=== PATIENT | female | born 1965 | race Caucasian/White ===

== ENCOUNTER 2020-06-12 06:39 | Outpatient (CLI) | payer OTHER ==
[2020-06-12 12:20] LABS: #Basophils 0.1 10x3/uL (0.0-0.2); #Eosinphils 0.1 10x3/uL (0.0-0.5); #Monocytes 0.5 10x3/uL (0.0-1.1); #Neutrophils 5.5 10x3/uL (1.5-8.4); %Basophils 0.6 % (0.0-2.0); %Eosinophils 0.6 % (0.0-6.0); %Lymphocytes 22.3 % (18.0-47.0); %Monocytes 6.7 % (0.0-10.0); %Neutrophils 69.5 % (40.0-75.0); Hemoglobin 13.8 g/dL (12.0-16.0); Mean Corpuscular HGB CONC 33.6 G/DL (32.0-36.0); Mean Corpuscular Hemoglobin 30.7 PG (27.0-33.0); Mean Corpuscular Volume 91.3 fl (80.0-100.0); Mean Platelet Volume 9.6 fl (7.4-10.4); Platelet Count 242 10x3/uL (130-400); RBC Distribution Width 12.8 % (11.5-14.5); White Blood Cell (WBC) Count 7.9 10x3/uL (4.5-11.0)
[2020-06-12 12:32] LABS: Anion Gap 13 mmol/L (10-20); BUN (Urea Nitrogen) 16 mg/dL (9.8-20.1); Calc. Creatinine Clearance 0 mL/min (70-130); Calcium 9.1 mg/dL (7.8-10.44); Carbon Dioxide 27 mmol/L (22-29); Chloride 102 mmol/L (98-107); Glucose 97 mg/dL (70-105); Potassium 4.2 mmol/L (3.5-5.1); Sodium 138 mmol/L (136-145)
[2020-06-12 19:02] LABS: SARS-CoV-2 MS2 Positive; SARS-CoV-2 N Gene Negative; SARS-CoV-2 S Gene Negative; SARS-CoV-2 by NAA Not Detected (NotDetected); SARS-CoV-2 orf1ab Negative
== END 2020-06-12 06:40 | disposition home or self-care (01) ==
LOC: LABBT 06:39
PROVIDERS: ATTEND Specialist
DX: Z01.812 Encounter for preprocedural laboratory examination (principal); N63.20 Unspecified lump in the left breast, unspecified quadrant; Z20.828 Contact with and (suspected) exposure to other viral communicable diseases
CPT/HCPCS: 80048; 85025; 87635; U0003

== ENCOUNTER 2020-06-17 06:54 | Day surgery (SDC) | payer OTHER ==
[2020-06-16 15:26] VITALS: BMI 39.1
[2020-06-17] MEDS ORDERED: Midazolam HCl 2 mg/2 ml Vial ONE (07:08)
[2020-06-17] MEDS ORDERED: Fentanyl 100 MCG/2 ML VIAL ONE (07:08)
[2020-06-17] MEDS ORDERED: Bupivacaine 0.25% HCL 30 ML VIAL ONE (07:26)
[2020-06-17] MEDS ORDERED: Isosulfan Blue 50 MG/5 ML VIAL ONE (07:26)
[2020-06-17] MEDS ORDERED: Lidocaine 2% PF 5 ML VIAL ONE (07:26)
[2020-06-17] MEDS ORDERED: EPINEPHrine 1 MG/ML AMP ONE (07:26)
[2020-06-17] MEDS ORDERED: Acetaminophen 500 MG TAB ONE (08:23)
[2020-06-17] MEDS ORDERED: Ketorolac Tromethamine 30 MG/ML VIAL ONE (08:23)
[2020-06-17] MEDS ORDERED: Lidocaine 1% w/Epinephrine 1:100K 20 ML VIAL ONE (09:21)
[2020-06-17] MEDS ORDERED: HYDROcodone/Acetaminophen 5/325 mg Tablet ONE (11:29)
[2020-06-17] MEDS ORDERED: Dexamethasone 20 MG/5 ML VIAL ONE (11:34)
[2020-06-17] MEDS ORDERED: PROPOFOL 200 MG/20 ML VIAL ONE (11:34)
[2020-06-17] MEDS ORDERED: Lidocaine 1% PF 5 ML VIAL ONE (11:34)
[2020-06-17] MEDS ORDERED: Ondansetron PF 4 MG/2 ML Vial ONE (11:34)
--- NOTE | 2020-06-17 12:26 | MMO ---
MAMMOGRAM SURGICAL SPECIMEN: HISTORY: Left breast nodule. FINDINGS: The surgical specimen demonstrates the localization wire with a large piece of soft tissue. No defin ite nodular density is identified. Discussed over the telephone with Dr. Jamar Stewart in the operating room at 10:32 a.m. CODE ELIUD POS: DELTA
--- NOTE | 2020-06-17 14:58 | OP ---
DATE OF PROCEDURE: 06/17/2020 PREOPERATIVE DIAGNOSIS: Mammographic left breast lesion. POSTOPERATIVE DIAGNOSIS: Mammographic left breast lesion. PROCEDURE PERFORMED: Mammographic needle localized left breast excisional biopsy. SENIOR QUALITY ASSURANCE ENGINEER: Jenn Schneider, medical student. ANESTHESIA: General with laryngeal mask airway. INDICATIONS: The patient is a 54-year-old female, who presents with a recent mammogram revealing a concerning lesion on the lateral left breast. This was not seen on ultrasound. She is brought in for mammographic needle localized excisional biopsy. DESCRIPTION OF OPERATION: Informed consent was obtained. The patient was taken to the operating room, where general anesthesia obtained, patient in supine position. Prior to surgery, she had mammographic needle localization performed. The needle was advanced in a superior to inferior fashion along the lateral aspect of the left breast. The needle was 9 cm from the tip of the needle at the point that it was advanced. Review of the x-ray preoperatively revealed that the lesion was about 2.5 cm from the tip of the needle and along the anterior surface of the needle. The left breast and needle were prepped with ChloraPrep and draped in sterile fashion. A counter incision was created overlying the course of the needle about 4 to 5 cm from the needle entry site. Dissection was carried through skin and subcutaneous tissue. Dissection was carried deeply within the breast. At that point, I dissected superiorly to identify the localizing needle. Identified at the point that it was about 4 to 5 cm from the tip of the needle. The needle was removed and the wire within the needle was then replaced to the counter incision. The tissue into which the wire entered was grasped with Allis clamp, and careful dissection was carried out around the wire, attempting to get a wide core of tissue, focusing on the anterior aspect of the wire. The dissection was carried out primarily using electrocautery and the specimen was removed intact with the wire still within it. Localizing sutures were placed and the specimen was submitted for mammographic evaluation. There was difficult to discern whether the lesion of concern was removed or not. It was then submitted to pathology. Meticulous hemostasis was obtained. The wound was irrigated. It was closed in layers with 3-0 and 4-0 Monocryl. Additional local anesthetic was infiltrated into the wound during closure. Dermabond was placed externally. There were no complications. Blood loss was negligible. The patient tolerated the procedure well and was taken to recovery room in stable condition. Job ID: [id number]
--- NOTE | 2020-06-17 15:52 | MMO ---
Exam: Left breast needle localization with mammographic guidance HISTORY: Left breast mass. COMPARISON: 02/27/2020. FINDINGS: Successful left breast needle localization with ultrasound guidance. 10 cm [place] needle and wire are adjacent to the lesion of concern. No immediate or postprocedure complications. TECHNIQUE: Consent obtained to perform a left breast needle localization. Under the CC projection, th e lesion was identified. Skin was prepped and draped in a sterile fashion. 1% lidocaine, buffered with sodium bicarbonate was used for local anesthesia. Under mammographic guidance, a 10 cm [place] nee dle and wire were advanced into the lesion via a CC approach. Needle position was confirmed in the lateral projection. Wire was deployed. Patient tolerated the procedure well. No immediate or postproc edure complications. IMPRESSION: Successful left breast needle localization with mammographic guidance. Transcribed Date/Time: 06/17/2020 4:05 PM
== END 2020-06-17 13:30 | disposition home or self-care (01) ==
LOC: SDC 06:54
PROVIDERS: ATTEND Specialist
PROC: 0HBU0ZZ Excision of Left Breast, Open Approach (ICD-10-PCS; principal; 2020-06-17)
DX: N60.22 Fibroadenosis of left breast (principal); M06.9 Rheumatoid arthritis, unspecified; Z79.899 Other long term (current) drug therapy
CPT/HCPCS: 19281; 76098; 88307; J0171; J0690; J1100; J1885; J2001; J2250; J2405; J2704; J3010; Q9968; S0020

== ENCOUNTER 2020-09-08 17:05 | Emergency (ER) | payer OTHER ==
--- NOTE | 2020-09-08 17:35 | RAD ---
XR Knee Lt 4 View STANDARD HISTORY: Left knee pain. Elevated WBCs. Fluid drained from knee. FINDINGS: No fracture or dislocation is identified. Mild degenerative changes are present. No bony destruction or periosteal reaction is identified.
[2020-09-08 17:53] LABS: #Eosinphils 0.2 thou/uL (0.0-0.7); #Lymphocytes 1.6 thou/uL (1.20-3.40); #Monocytes 0.4 thou/uL (0.11-0.59); #Neutrophils 4.7 thou/uL (1.40-6.50); %Basophils 0.1 % (0.0-1.0); %Lymphocytes 22.4 % (21.0-51.0); %Monocytes 6.2 % (0.0-10.0); %Neutrophils 68.3 % (42.0-75.0); Hemoglobin 13.7 g/dL (12.0-16.0); Mean Corpuscular HGB CONC 33.3 g/dL (32.0-36.0); Mean Corpuscular Hemoglobin 30.4 pg (27.0-31.0); Mean Corpuscular Volume 91.4 fL (78.0-98.0); Mean Platelet Volume 6.6 fL (7.4-10.4); Platelet Count 268 thou/uL (130-400); RBC Distribution Width 12.9 % (11.5-14.5); White Blood Cell (WBC) Count 6.9 thou/uL (4.8-10.8)
[2020-09-08 18:16] LABS: ALT (SGPT) 19 U/L (8-55); AST (SGOT) 15 U/L (5-34); Albumin 3.8 g/dL (3.5-5.0); Alkaline Phosphatase 74 U/L (40-110); Anion Gap 13 mmol/L (10-20); BUN (Urea Nitrogen) 14 mg/dL (9.8-20.1); Bilirubin, Total 0.6 mg/dL (0.2-1.2); Calc. Creatinine Clearance 0 mL/min (70-130); Carbon Dioxide 27 mmol/L (22-29); Chloride 101 mmol/L (98-107); Globulin 4.3 g/dL (2.4-3.5); Glucose 145 mg/dL (70-105); Potassium 3.7 mmol/L (3.5-5.1); Protein, Total 8.1 g/dL (6.0-8.3); Sodium 137 mmol/L (136-145)
== END 2020-09-08 21:30 | disposition home or self-care (01) ==
LOC: ERS 17:05
DX: M25.562 Pain in left knee (principal); M06.9 Rheumatoid arthritis, unspecified; Z79.899 Other long term (current) drug therapy
CPT/HCPCS: 36415; 80053; 83605; 85025

== ENCOUNTER 2020-09-18 11:52 | Emergency (ER) | payer OTHER ==
[2020-09-18 12:25] LABS: #Eosinphils 0.1 thou/uL (0.0-0.7); #Lymphocytes 1.4 thou/uL (1.20-3.40); #Monocytes 0.5 thou/uL (0.11-0.59); #Neutrophils 5.1 thou/uL (1.40-6.50); %Basophils 0.1 % (0.0-1.0); %Eosinophils 0.8 % (0.0-10.0); %Lymphocytes 19.2 % (21.0-51.0); %Monocytes 6.7 % (0.0-10.0); %Neutrophils 73.2 % (42.0-75.0); Hemoglobin 12.2 g/dL (12.0-16.0); Mean Corpuscular Hemoglobin 30.9 pg (27.0-31.0); Mean Corpuscular Volume 90.8 fL (78.0-98.0); Platelet Count 379 thou/uL (130-400); RBC Distribution Width 12.5 % (11.5-14.5); Red Blood Cell (RBC) Count 3.95 mill/uL (4.20-5.40)
[2020-09-18 12:51] LABS: ALT (SGPT) 10 U/L (8-55); AST (SGOT) 10 U/L (5-34); Albumin 3.6 g/dL (3.5-5.0); Alkaline Phosphatase 68 U/L (40-110); Anion Gap 15 mmol/L (10-20); BUN (Urea Nitrogen) 16 mg/dL (9.8-20.1); Bilirubin, Total 0.7 mg/dL (0.2-1.2); Calc. Creatinine Clearance 0 mL/min (70-130); Calcium 8.5 mg/dL (7.8-10.44); Carbon Dioxide 21 mmol/L (22-29); Chloride 105 mmol/L (98-107); Globulin 3.9 g/dL (2.4-3.5); Glucose 206 mg/dL (70-105); Potassium 4.1 mmol/L (3.5-5.1); Protein, Total 7.5 g/dL (6.0-8.3); Sodium 137 mmol/L (136-145)
== END 2020-09-18 14:19 | disposition home or self-care (01) ==
LOC: ERS 11:52
DX: M25.562 Pain in left knee (principal); R60.0 Localized edema; M06.9 Rheumatoid arthritis, unspecified; Z79.899 Other long term (current) drug therapy; M25.462 Effusion, left knee
CPT/HCPCS: 36415; 80053; 85025; 85060; 86140; 87070; 87077; 87102; 87116; 87186; 87205; 87206; 89051; 89060

== ENCOUNTER 2020-09-22 10:48 | Inpatient (IN) | payer OTHER ==
[~2020-09-22 10:48] MED LIST: Heparin 1,000 UNITS/ML VIAL ONE
[2020-09-22] MEDS ORDERED: VANCOMYCIN 2 GRAM/400 ML BAG 2 GM in Premix Bag 1 BAG IVPB SCH (13:15)
[2020-09-22] MEDS ORDERED: Ondansetron PF 4 MG/2 ML Vial IVP PRN (14:21)
[2020-09-22] MEDS ORDERED: Ondansetron ODT 4 MG TAB PO PRN (14:21)
[2020-09-22] MEDS ORDERED: Acetaminophen 650 MG Suppository PR PRN (14:21)
[2020-09-22] MEDS ORDERED: CEFAZOLIN 2 GM in Premix Bag 1 BAG IVPB SCH (15:45)
[2020-09-22] MEDS: Heparin 5,000 UNITS/ML VIAL SC SCH ×2 (17:05→20:14)
[2020-09-22 17:56] VITALS: BMI 39.4
[2020-09-22] MEDS: Acetaminophen 325 MG TAB PO PRN (20:13)
[2020-09-22] MEDS ORDERED: Cefepime 2 GM in Sodium Chloride 0.9% 100 ML IVPB SCH (21:00)
[2020-09-23] MEDS: Vancomycin 1.5 GRAM/300 ML BAG 1.5 GM in Premix Bag 1 BAG IVPB SCH ×2 (04:45→15:09)
[2020-09-23] MEDS: Heparin 5,000 UNITS/ML VIAL SC SCH ×3 (08:28→19:58)
[2020-09-23] MEDS ORDERED: Fentanyl 100 MCG/2 ML VIAL ONE ×3 (10:41→13:26)
[2020-09-23] MEDS ORDERED: Neomycin-Polymyxin 1 ML AMP ONE ×2 (11:09)
[2020-09-23] MEDS ORDERED: Ketorolac Tromethamine 30 MG/ML VIAL ONE (11:13)
[2020-09-23] MEDS ORDERED: PROPOFOL 200 MG/20 ML VIAL ONE (11:13)
[2020-09-23] MEDS ORDERED: Ondansetron PF 4 MG/2 ML Vial ONE (11:13)
[2020-09-23] MEDS ORDERED: Lidocaine 1% PF 5 ML VIAL ONE (11:13)
[2020-09-23] MEDS ORDERED: Dexamethasone 20 MG/5 ML VIAL ONE (11:13)
[2020-09-23] MEDS ORDERED: Promethazine HCl 25 MG/ML VIAL IM PRN (11:22)
[2020-09-23] MEDS ORDERED: Ondansetron HCl/PF 4 MG/2 ML Vial IVP PRN (11:22)
[2020-09-23] MEDS ORDERED: Promethazine HCl 25 MG/ML VIAL SLOW IVP PRN (11:22)
[2020-09-23] MEDS: Acetaminophen 325 MG TAB PO PRN (17:22)
[2020-09-24] MEDS: Vancomycin 1.5 GRAM/300 ML BAG 1.5 GM in Premix Bag 1 BAG IVPB SCH (04:37)
[2020-09-24] MEDS: Heparin 5,000 UNITS/ML VIAL SC SCH ×3 (09:22→19:55)
[2020-09-24] MEDS ORDERED: Vancomycin 1.5 GRAM/300 ML BAG 1.5 GM in Premix Bag 1 BAG IVPB SCH (12:00)
[2020-09-24] MEDS: Acetaminophen 325 MG TAB PO PRN ×2 (12:19→18:36)
[2020-09-25 07:30] VITALS: TEMP 98.3
[2020-09-25] MEDS: Acetaminophen 325 MG TAB PO PRN (08:29)
[2020-09-25] MEDS: Heparin 5,000 UNITS/ML VIAL SC SCH (08:30)
[2020-09-25 11:37] VITALS: BP 108/71
== END 2020-09-25 13:57 | disposition home or self-care (01) | DRG 487 ==
LOC: ERS 10:48 → SURG A 13:35
PROVIDERS: ADMIT Internal Medicine; ATTEND Hospitalist
PROC: 0SBD4ZZ Excision of Left Knee Joint, Percutaneous Endoscopic Approach (ICD-10-PCS; principal; 2020-09-23)
PROC: 02HV33Z Insertion of Infusion Device into Superior Vena Cava, Percutaneous Approach (ICD-10-PCS; 2020-09-24)
PROC: B5181ZA Fluoroscopy of Superior Vena Cava using Low Osmolar Contrast, Guidance (ICD-10-PCS; 2020-09-24)
PROC: B548ZZA Ultrasonography of Superior Vena Cava, Guidance (ICD-10-PCS; 2020-09-24)
DX: M00.062 Staphylococcal arthritis, left knee (principal); B95.62 Methicillin resistant Staphylococcus aureus infection as the cause of diseases classified elsewhere; M06.9 Rheumatoid arthritis, unspecified; M65.862 Other synovitis and tenosynovitis, left lower leg; Z20.822 Contact with and (suspected) exposure to COVID-19; M25.462 Effusion, left knee; Z90.721 Acquired absence of ovaries, unilateral
CPT/HCPCS: 36415; 36569; 80048; 80053; 80202; 83605; 85025; 85652; 87040; 87491; 87591; 87635; 96365; C1751; J0878; J1100; J1644; J1885; J2405; J2704; J3010; J3370; J3490; U0003; U0005